=== PATIENT | female | born 1960 | race Two or more races ===

== ENCOUNTER 2023-05-03 08:33 | Day surgery (SDC) | payer OTHER, SELFPAY ==
[2023-05-01 12:45] VITALS: BMI 29.9
--- NOTE | 2023-05-02 10:29 | P.CONAN_ITS ---
Documented by User: Lashaun Hyde NP 05/02/23 10:30 HPI - Anesthesia Eval Consult details Narrative: 63yo F for Colonoscopy PMFSH Active Problems Active Problems: All Active Problems (Updated 05/01/23 @ 12:45 by Marion Clifford, KATY) Osteoporosis (Acute) Uterine fibroid (Acute) Postmenopausal (Acute ~06/09/21) Hyperglycemia (Acute) Normal Pap smear (Acute) Mammogram normal (Acute) Hyperlipemia (Acute) HTN (hypertension) (Acute) Annual physical exam (Acute) Past Medical History Medical History Osteoporosis Postmenopausal (~06/09/21) Hyperglycemia Normal Pap smear Mammogram normal Hyperlipemia HTN (hypertension) Annual physical exam Vitamin D deficiency Uterine fibroid Glaucoma Hypothyroidism Family History Family History Father HTN (hypertension) Stroke Mother HTN (hypertension) Brother No problems noted. Sister No problems noted. Son No problems noted. Sister No problems noted. Daughter No problems noted. 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 Housing: House Patient Tobacco Use Status: Never used Tobacco e-Cigarette/Vaping Use: Never Used Are you DNR?: No Advance Directives: No Advance Directives Information Provided: Yes Nutrition Risks: No Nutritional Risk Current occupational status: employed Cognitive needs: No Hearing needs: No Vision needs: Yes Meds Allergies Allergy/AdvReac Type Severity Reaction Status Date / Time lisinopril AdvReac Intermediate cough Verified 05/03/23 08:55 Home Medications Medication Instructions Recorded Confirmed Last Taken Type brimonidine 0.2 % eye drops 1 drp ophthalmic (eye) TID 06/09/21 05/01/23 Unknown History dorzolamide 22.3 mg-timolol 6.8 1 drp ophthalmic (eye) BID 06/09/21 05/01/23 Unknown History mg/mL eye drops memantine 10 mg tablet 10 mg PO BID 06/09/21 05/01/23 05/03/23 History Exam Height,Weight and Vital Signs: Height 5 ft 4 in Weight 78.925 kg Assessment and Plan Assessment Anesthesia Assessment: Chart Reviewed Documented by User: Mayte Andrade MD 05/03/23 08:58 [facility] Past Medical History Medical History Osteoporosis Postmenopausal (~06/09/21) Hyperglycemia Normal Pap smear Mammogram normal Hyperlipemia HTN (hypertension) Annual physical exam Vitamin D deficiency Uterine fibroid Glaucoma Hypothyroidism Family History Family History Father HTN (hypertension) Stroke Mother HTN (hypertension) Brother No problems noted. Sister No problems noted. Son No problems noted. Sister No problems noted. Daughter No problems noted. 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 Housing: House Patient Tobacco Use Status: Never used Tobacco e-Cigarette/Vaping Use: Never Used Are you DNR?: No Advance Directives: No Advance Directives Information Provided: Yes Nutrition Risks: No Nutritional Risk Current occupational status: employed Cognitive needs: No Hearing needs: No Vision needs: Yes Meds Allergies Allergy/AdvReac Type Severity Reaction Status Date / Time lisinopril AdvReac Intermediate cough Verified 05/03/23 08:55 Home Medications Medication Instructions Recorded Confirmed Last Taken Type brimonidine 0.2 % eye drops 1 drp ophthalmic (eye) TID 06/09/21 05/01/23 Unknown History dorzolamide 22.3 mg-timolol 6.8 1 drp ophthalmic (eye) BID 06/09/21 05/01/23 Unknown History mg/mL eye drops memantine 10 mg tablet 10 mg PO BID 06/09/21 05/01/23 05/03/23 History Exam Airway Mallampati Class: II TM Dist: >3cm Neck ROM: Full Loose/Missing/Broken Teeth: No Heart: RRR Lungs: CTA Assessment and Plan Assessment Anesthesia Assessment: Anesthesia Plan Discussed Final Anesthetic Review History of Problems with Anesthesia: No NPO: Yes ASA Class: II Final Preanesthetic Review: Meds/Allgs Chart Reviewed, Consent Obtained/Reviewed and Anes Risks/Benef Reviewed Patient Risk: Low Procedure Risk: Low Anesthetic Plan Anesthetic Plan: MAC: Disposition: Standard PACU
[2023-05-03 08:41] VITALS: BMI 29.9
[2023-05-03] MEDS: Lactated Ringers 1,000 ML 100 ML IVCONT (08:48)
[2023-05-03 08:53] VITALS: BP 151/101; PULSE 74; RESP 18; TEMP 36.6; O2SAT 97
--- NOTE | 2023-05-03 09:05 | MHC.SHP ---
Pre-Procedural Eval Section A Date of Service: 05/03/23 Section B Chief Complaint: Encounter for screening for malignant neoplasm of Details of Present Illness: see H&P no changes Relevant Social History: None Present Medications: see Short Stay Collaborative assessment Medical History: No relevant PMH History of Previous Operations: No relevant previous surgery Allergies: Allergies Allergy/AdvReac Type Severity Reaction Status Date / Time lisinopril AdvReac Intermediate cough Verified 05/03/23 08:55 Review of Systems Sugical H&P ROS: Negative: Constitution, Cardiovascular, Respiratory, Neurological, Psychiatric, Hem-Onc, Allergic/Immunologic, Gastrointestinal, Genitourinary, Musculoskeletal, Integumentary, Endocrine and Eyes/Ears/Nose/Throat Exam Surgical H&P Exam: Normal: HEENT, Normal: Heart, Normal: Lungs, Normal: Extremities, Normal: Abdomen, Normal: Skin and Normal: Neurological Plan Diagnosis/Plan: Unchanged I have reviewed the history and physical and performed a pertinent physical examination on my patient. No changes have occurred unless specified. Time Spent With Patient Time: Total time managing care of this patient today ____ minutes.
[2023-05-03 09:40] VITALS: BP 113/74; PULSE 72; RESP 14; TEMP 36.1; O2SAT 98
[2023-05-03 09:45] VITALS: BP 106/72; PULSE 69; RESP 16; O2SAT 98
[2023-05-03 09:50] VITALS: BP 114/79; PULSE 75; RESP 16; O2SAT 99
[2023-05-03 09:55] VITALS: BP 114/79; PULSE 70; RESP 16; TEMP 36.4; O2SAT 99
--- NOTE | 2023-05-03 10:07 | OP_ITS ---
DATE OF SERVICE: 05/03/2023 SURGEON: Junior Stephenson MD INDICATIONS: Colon cancer screening. PREOPERATIVE DIAGNOSIS: POSTOPERATIVE DIAGNOSIS: PROCEDURE PERFORMED: Colonoscopy to the cecum. ESTIMATED BLOOD LOSS: COMPLICATIONS: ANESTHESIA: Monitored anesthesia care. ASSISTANTS: SPECIMENS: DESCRIPTION OF PROCEDURE: A history and physical performed. The risks and benefits of the procedure were explained to the patient. Informed consent was obtained. The patient was placed in the left lateral decubitus position. A digital rectal exam was performed and was found to be normal. The Olympus pediatric video colonoscope was introduced into the rectum and advanced to the cecum. The cecum was identified by transillumination, palpation, and identification of ileocecal valve. Examination was performed and the scope was removed. She tolerated the procedure well. She returned to recovery room in stable condition. FINDINGS: The terminal ileum was not examined. The visualized colonic mucosa was normal. The quality of the prep was good. No polyps were identified. Retroflexed examination showed moderate-sized internal hemorrhoids. IMPRESSION: Normal colonoscopy. RECOMMENDATIONS: 1. Follow up as needed. 2. Repeat colonoscopy is recommended in 10 years for average risk individuals. MD LILLY Dawson/VIOLETTAL / [id number]
== END 2023-05-03 10:09 | disposition home or self-care (01) ==
PROVIDERS: PCP Internal Medicine; Visit Provider Internal Medicine Gastroenterology
PROC: 0DJD8ZZ Inspection of Lower Intestinal Tract, Via Natural or Artificial Opening Endoscopic (ICD-10-PCS; CPT 45378; principal; 2023-05-03 09:50)
DX: Z12.11 Encounter for screening for malignant neoplasm of colon (principal); K64.8 Other hemorrhoids; I10 Essential (primary) hypertension; E78.00 Pure hypercholesterolemia, unspecified; E03.9 Hypothyroidism, unspecified; H40.9 Unspecified glaucoma; Z79.899 Other long term (current) drug therapy; Z88.8 Allergy status to other drugs, medicaments and biological substances
CPT/HCPCS: 45378; J2704

== ENCOUNTER 2023-06-21 08:02 | Outpatient (AMB) | payer OTHER, SELFPAY ==
--- NOTE | 2023-06-21 08:09 | MHC.PC.OV ---
Vital Signs 06/21/23 08:10 Height 5 ft 3 in Weight 174 lb BMI 30.8 BP 106/68 Blood Pressure Location Lt brachial Position Sitting Pulse 68 Pulse Source Pulse Oximeter Pulse Oximetry (%) 97 Oxygen Delivery Method Room Air Intake Visit Reasons: PE Intake Note: Pt is here today for a PE. Allergies atorvastatin [From Lipitor] Adverse Reaction (Intermediate, Verified 06/21/23 12:37) Muscle Pain lisinopril Adverse Reaction (Intermediate, Verified 06/21/23 08:13) cough Medication List - Last Reconciled 06/21/23 by Zuleima Rodriguez MD brimonidine 0.2% 1 drp ophthalmic (eye) TID dorzolamide-timolol 22.3-6.8 mg/mL 1 drp ophthalmic (eye) BID levothyroxine 75 mcg PO DAILY memantine 10 mg PO BID metoprolol succinate ER 50 mg PO DAILY rosuvastatin (Crestor) 10 mg PO DAILY Tobacco use date assessed: 06/21/23 Dental Screening Dental Screen Date: 06/21/23 Did you have a dental visit in the last 12 months?: Yes Did you have a dental problem in the last 6 months where you did not have access to dental care?: No Was dental information given to patient?: Patient has dentist HPI PE HPI Details Patient presents for physical [facility] Medical History Osteoporosis Postmenopausal (~06/09/21) Hyperglycemia Normal Pap smear Mammogram normal Hyperlipemia HTN (hypertension) Annual physical exam Vitamin D deficiency Uterine fibroid Glaucoma Hypothyroidism Surgical History H/O prior ablation treatment Family History Father HTN (hypertension) Stroke Mother HTN (hypertension) Brother No problems noted. Sister No problems noted. Son No problems noted. Sister No problems noted. Daughter No problems noted. 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 1. Little interest or pleasure in doing things: not at all 2. Feeling down, depressed, or hopeless: not at all 3. Trouble falling or staying asleep, or sleeping too much: not at all 4. Feeling tired or having little energy: not at all 5. Poor appetite or overeating: not at all 6. Feeling bad about yourself - or that you are a failure or have let yourself or your family down: not at all 7. Trouble concentrating on things, such as reading the newspaper or watching television: not at all 8. Moving or speaking so slowly that other people could have noticed. Or the opposite - being so fidgety or restless that you have been moving around a lot more than usual: not at all 9. Thoughts that you would be better off or of hurting yourself in some way: not at all Total score: 0 Depression Screening Interpretation: Negative Depression Screening Done: Yes 27624 - PHQ-9 Billing: Yes Source: Developed by Drs. Elton Flores, Natacha Godoy, Uday Pena and colleagues, with an educational jeremy from [employer]. Thrive Questionnaire Date Thrive assessed: 06/21/23 I am a: Patient What is your living situation today?: I have a steady place to live Within the past 12 months, did the food you bought not last and you didn't have the money to get more?: Never true Within the past 12 months, did you worry whether your food would run out before you got money to buy more?: Never true Do you have trouble paying for medicines?: No Do you have trouble getting transportation to medical appointments?: No Do you have trouble paying your heating and electricity bill?: No Do you have trouble taking care of your child, family member or friend?: No Do you have trouble with day-to-day activities such as bathing, preparing meals, shopping, managing finances, etc.?: No Are you currently unemployed and looking for a job?: No Are you interested in more education?: No Please select the resources that you would like help with: None Currently or been in a relationship where the following occur: no concerns reported THRIVE Score: 0 AUDIT C Alcohol Use Questionnaire (AUDIT-C) 1. How often do you have a drink containing alcohol?: Never 3. How often do you have six or more drinks on one occasion?: Never Total Score: 0 LAURITA-7 AMB Questionnaire LAURITA-7 Date LAURITA - 7 assessed: 06/21/23 Feeling nervous, anxious, or on edge: 0 = Not at all Not being able to stop or control worryin = Not at all Worrying too much about different things: 0 = Not at all Trouble relaxin = Not at all Being so restless that it is hard to sit still: 0 = Not at all Becoming easily annoyed or irritable: 0 = Not at all Feeling afraid as if something awful might happen: 0 = Not at all Total LAURITA-7 score (0-4 normal; 5-9 mild; 10-14 moderate; 15-21 severe): 0 Source: Developed by Drs. Elton Flores, Natacha Godoy, Uday Pena and colleagues, with an educational jeremy from [employer]. Review of Systems Const All systems reviewed & are unremarkable except as noted in HPI and below Reports no additional complaints Eyes Reports no additional complaints ENT Reports no additional complaints Card Reports no additional complaints Resp Reports no additional complaints GI Reports no additional complaints Reports no additional complaints Physical exam (Primary Care) Vital Signs: Last Vital Signs Pulse 68 06/21/23 08:10 BP 106/68 06/21/23 08:10 Pulse Ox 97 06/21/23 08:10 Oxygen Delivery Method Room Air 06/21/23 08:10 BMI result Body Mass Index 30.8 Tobacco/Smoking Status: Tobacco use Status Tobacco use date assessed 06/21/23 06/21/23 08:15 Patient Tobacco Use Status Never used Tobacco 06/21/23 08:15 e-Cigarette/Vaping Use Never Used 06/21/23 08:09 PHQ-9: PHQ-9 Score PHQ-9: Total score 0 06/21/23 08:49 Depression Screening Interpretation: Negative Thrive Assessment: Date of Thrive Assessment Date Thrive assessed 06/21/23 06/21/23 08:20 Currently or been in a relationship where the following occur: no concerns reported Const General: no acute distress HENMT Head: Yes normal to inspection Ears: hearing grossly normal bilaterally Mouth: Normal oral and palatal mucosa present Eyes General: appearance normal, both eyes and all related structures Neck Neck: Yes no lymphadenopathy and Yes supple Resp Effort & Inspection: normal respiratory effort Auscultation: clear to auscultation bilaterally Cardio Rhythm: regular rhythm Heart sounds: S1 normal heart sound present and S2 normal heart sound present GI Inspection: Yes normal to inspection Palpation (GI): Soft to palpation Percussion: Yes normal to percussion Auscultation: normal bowel sounds Assessment and Plan Assessment & Plan (1) Osteoporosis: Comment: T-score -2.7. DEXA 06/27. Patient up for lifestyle changes and vitamin-D 3 supplement. She declined tx, DEXA will be recheck in 11/2023 Code(s): M81.0 - Age-related osteoporosis without current pathological fracture Plan: Patient will schedule DEXA in November at [facility] and will follow-up to discuss the results. Weight-bearing exercises at least 3 times a week and taking vitamin-D supplement 5000 units every other day discussed with the patient (2) Postmenopausal: Onset Date: ~06/09/21 Code(s): Z78.0 - Asymptomatic menopausal state (3) Hyperlipemia: Comment: Intolerant to Lipitor, muscle pain Code(s): E78.5 - Hyperlipidemia, unspecified Plan: Crestor 10 mg will be tried patient will have lipid profile checked in 2 months (4) HTN (hypertension): Comment: Lisinopril changed to metoprolol by Ophthalmology because of beneficial effect of metoprolol on glaucoma Code(s): I10 - Essential (primary) hypertension Plan: Continue metoprolol (5) Annual physical exam: Code(s): Z00.00 - Encounter for general adult medical examination without abnormal findings Plan: Well-balanced diet regular physical activity discussed with the patient she is up-to-date with mammogram and colonoscopy Orders: Orders Lipid Panel 3 Months E78.5 - Hyperlipidemia, unspecified, I10 - Essential (primary) hypertension, Z78.0 - Asymptomatic menopausal state Hemoglobin A1c 3 Months E78.5 - Hyperlipidemia, unspecified, I10 - Essential (primary) hypertension, Z78.0 - Asymptomatic menopausal state Comprehensive [place]. Panel Fast Today E78.5 - Hyperlipidemia, unspecified, I10 - Essential (primary) hypertension, Z78.0 - Asymptomatic menopausal state Hemoglobin A1c 365 Days E78.5 - Hyperlipidemia, unspecified, I10 - Essential (primary) hypertension, M81.0 - Age-related osteoporosis without current pathological fracture, R73.9 - Hyperglycemia, unspecified, Z00.00 - Encounter for general adult medical examination without abnormal findings UA w Microscopic 365 Days E78.5 - Hyperlipidemia, unspecified, I10 - Essential (primary) hypertension, M81.0 - Age-related osteoporosis without current pathological fracture, R73.9 - Hyperglycemia, unspecified, Z00.00 - Encounter for general adult medical examination without abnormal findings Vitamin D 25-OH Total 365 Days E78.5 - Hyperlipidemia, unspecified, I10 - Essential (primary) hypertension, M81.0 - Age-related osteoporosis without current pathological fracture, R73.9 - Hyperglycemia, unspecified, Z00.00 - Encounter for general adult medical examination without abnormal findings XR DEXA axial skeleton 5 Months M81.0 - Age-related osteoporosis without current pathological fracture Vitamin D 25-OH Total 3 Months E78.5 - Hyperlipidemia, unspecified, I10 - Essential (primary) hypertension, Z78.0 - Asymptomatic menopausal state Comprehensive [place]. Panel Fast 365 Days E78.5 - Hyperlipidemia, unspecified, I10 - Essential (primary) hypertension, M81.0 - Age-related osteoporosis without current pathological fracture, R73.9 - Hyperglycemia, unspecified, Z00.00 - Encounter for general adult medical examination without abnormal findings Lipid Panel 365 Days E78.5 - Hyperlipidemia, unspecified, I10 - Essential (primary) hypertension, M81.0 - Age-related osteoporosis without current pathological fracture, R73.9 - Hyperglycemia, unspecified, Z00.00 - Encounter for general adult medical examination without abnormal findings Complete Blood Count Auto Diff 365 Days E78.5 - Hyperlipidemia, unspecified, I10 - Essential (primary) hypertension, M81.0 - Age-related osteoporosis without current pathological fracture, R73.9 - Hyperglycemia, unspecified, Z00.00 - Encounter for general adult medical examination without abnormal findings TSH reflex Free T4 365 Days E78.5 - Hyperlipidemia, unspecified, I10 - Essential (primary) hypertension, M81.0 - Age-related osteoporosis without current pathological fracture, R73.9 - Hyperglycemia, unspecified, Z00.00 - Encounter for general adult medical examination without abnormal findings Medications: New rosuvastatin (Crestor) 10 mg PO DAILY 90 tabs 1RF Discontinued atorvastatin Discontinued Reason: Doctor's Order 20 mg PO DAILY 90 tabs 3RF Coding Level of Care Code Est Pt Prev Care 40-64y(73258) Diagnoses Osteoporosis M81.0 Postmenopausal Z78.0 Hyperlipemia E78.5 HTN (hypertension) I10 Annual physical exam Z00.00
[2023-06-21 08:10] VITALS: BP 106/68; PULSE 68; O2SAT 97; BMI 30.8
== END 2023-06-21 09:14 | disposition home or self-care (01) ==
PROVIDERS: PCP Internal Medicine; Visit Provider Internal Medicine
DX: M81.0 Age-related osteoporosis without current pathological fracture (principal); Z78.0 Asymptomatic menopausal state; E78.5 Hyperlipidemia, unspecified; I10 Essential (primary) hypertension; Z00.00 Encounter for general adult medical examination without abnormal findings
CPT/HCPCS: 99396

== ENCOUNTER 2024-09-18 10:16 | Outpatient (REF) | payer OTHER, SELFPAY ==
[2024-09-18 12:57] LABS: MANUAL DIFF FLAG NO
[2024-09-18 13:20] LABS: Basophils Percent Auto 0.6 % (0-2); Eosinophils Absolute Auto 0.2 X10*3/uL (0.0-0.4); Eosinophils Percent Auto 3.4 % (0-4); Hematocrit 41.4 % (37.0-47.0); Hemoglobin 13.1 g/dl (12.0-16.0); Imm Gran Abs Auto 0.02 X10*3/uL (0.00-0.03); Imm Gran Pct Auto 0.3 % (0.0-0.4); Lymphocytes Absolute Auto 2.6 X10*3/uL (1.2-4.9); Lymphocytes Percent Auto 40.9 % (20-40); Mean Corpuscular HGB Conc 31.6 g/dl (31.0-35.0); Mean Corpuscular Volume 91.8 fL (80.0-98.0); Mean Platelet Volume 10.6 fL (9.4-12.3); Monocytes Absolute Auto 0.4 X10*3/uL (0.1-1.2); Monocytes Percent Auto 6.4 % (2-11); Neutrophils Percent Auto 48.4 % (45-73); Platelet Count 262 X10*3/uL (160-400); Red Blood Count 4.51 X10*6/uL (4.20-5.50); White Blood Count 6.2 X10*3/uL (4.8-10.8)
[2024-09-18 13:26] LABS: Estimated Average Glucose 105 mg/dL; Hemoglobin A1c % 5.3 % (<6.0)
[2024-09-18 13:50] LABS: Alanine Aminotransferase 20 U/L (0-31); Albumin Level 4.8 g/dL (3.5-5.0); Alkaline Phosphatase 61 U/L (39-117); Anion Gap 11 (12-20); Aspartate Amino Transferase 25 U/L (5-31); Bilirubin Total 0.4 mg/dL (0.0-1.0); Blood Urea Nitrogen 21 mg/dL (9-16); Calcium 9.5 mg/dL (8.4-10.2); Carbon Dioxide 26 mmol/L (22-29); Chloride 106 mmol/L (96-108); Cholesterol 193 mg/dL (<200); Estimated Glomerular Filt Rate > 60; Glucose Fasting 88 mg/dL (60-99); HDL Cholesterol 56 mg/dL (>40); LDL Cholesterol Calculated 110 mg/dL (<100); Potassium 4.1 mmol/L (3.3-5.1); Sodium 139 mmol/L (135-145); TSH reflex Free T4 0.76 uIU/mL (0.32-4.0); Total Protein 7.3 g/dL (6.5-8.0); Triglycerides 135 mg/dL (<150); Vitamin D 25-OH Total 121.9 ng/mL (>30)
== END 2024-09-18 10:17 | disposition home or self-care (01) ==
LOC: HO.HMGCLDS 10:16
PROVIDERS: PCP Internal Medicine; Visit Provider Internal Medicine
DX: Z00.00 Encounter for general adult medical examination without abnormal findings (principal); E78.5 Hyperlipidemia, unspecified; M81.0 Age-related osteoporosis without current pathological fracture; E04.1 Nontoxic single thyroid nodule; E55.9 Vitamin D deficiency, unspecified; R73.9 Hyperglycemia, unspecified; I10 Essential (primary) hypertension; Z13.31 Encounter for screening for depression
CPT/HCPCS: 36415; 80053; 80061; 82306; 83036; 84443; 85025; 96127

== ENCOUNTER 2024-09-18 10:16 | Outpatient (AMB) | payer OTHER, SELFPAY ==
--- NOTE | 2024-09-18 10:18 | A.OFFPC_ITS ---
Vital Signs 09/18/24 10:21 Height 5 ft 4 in Weight 171 lb 4 oz BMI 29.4 BP 126/76 Blood Pressure Location Rt brachial Position Sitting Respiration 16 Pulse 59 Pulse Source Pulse Oximeter Temp 97.7 F Temp Source Oral Pulse Oximetry (%) 96 Oxygen Delivery Method Room Air Intake Visit Reasons: Annual PE/ins inactive Intake Note: Pt is here for annual PE. Allergies atorvastatin [From Lipitor] Adverse Reaction (Intermediate, Verified 09/18/24 10:21) Muscle Pain lisinopril Adverse Reaction (Intermediate, Verified 09/18/24 10:21) cough Medication List - Last Reconciled 09/18/24 by Zuleima Rodriguez MD brimonidine 0.2% 1 drp ophthalmic (eye) TID dorzolamide-timolol 22.3-6.8 mg/mL 1 drp ophthalmic (eye) BID levothyroxine 75 mcg PO DAILY memantine 10 mg PO BID metoprolol succinate ER 50 mg PO DAILY rosuvastatin 10 mg PO DAILY Tobacco use date assessed: 09/18/24 Dental Screening Dental Screen Date: 09/18/24 Did you have a dental visit in the last 12 months?: Yes Did you have a dental problem in the last 6 months where you did not have access to dental care?: No Was dental information given to patient?: Patient has dentist HPI Annual PE/ins inactive HPI Details Patient presents for physical, she is going on the [employer] cruise in December [facility] Medical History (Updated 09/18/24 @ 11:33 by Zuleima Rodriguez MD) Vitamin D deficiency Osteoporosis Postmenopausal (~06/09/21) Hyperglycemia Normal Pap smear Mammogram normal Hyperlipemia HTN (hypertension) Annual physical exam Uterine fibroid Glaucoma Hypothyroidism Surgical History (Updated 09/18/24 @ 10:50 by Zuleima Rodriguez MD) H/O prior ablation treatment Family History Father HTN (hypertension) Stroke Mother HTN (hypertension) Brother No problems noted. Sister No problems noted. Son No problems noted. Sister No problems noted. Daughter No problems noted. 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 1. Little interest or pleasure in doing things: not at all 2. Feeling down, depressed, or hopeless: not at all 3. Trouble falling or staying asleep, or sleeping too much: not at all 4. Feeling tired or having little energy: not at all 5. Poor appetite or overeating: not at all 6. Feeling bad about yourself - or that you are a failure or have let yourself or your family down: not at all 7. Trouble concentrating on things, such as reading the newspaper or watching television: not at all 8. Moving or speaking so slowly that other people could have noticed. Or the opposite - being so fidgety or restless that you have been moving around a lot more than usual: not at all 9. Thoughts that you would be better off or of hurting yourself in some way: not at all Total score: 0 Depression Screening Interpretation: Negative Depression Screening Done: Yes 67253 - PHQ-9 Billing: Yes Source: Developed by Drs. Elton Flores, Natacha Godoy, Uday Pena and colleagues, with an educational jeremy from [employer]. Thrive Questionnaire Date Thrive assessed: 09/18/24 I am a: Patient What is your living situation today?: I have a steady place to live Within the past 12 months, did the food you bought not last and you didn't have the money to get more?: Never true Within the past 12 months, did you worry whether your food would run out before you got money to buy more?: Never true Do you have trouble paying for medicines?: No Do you have trouble getting transportation to medical appointments?: No Do you have trouble paying your heating and electricity bill?: No Do you have trouble taking care of your child, family member or friend?: No Do you have trouble with day-to-day activities such as bathing, preparing meals, shopping, managing finances, etc.?: No Are you currently unemployed and looking for a job?: No Are you interested in more education?: No Please select the resources that you would like help with: None Currently or been in a relationship where the following occur: No concerns reported THRIVE Score: 0 AUDIT C Alcohol Use Questionnaire (AUDIT-C) 1. How often do you have a drink containing alcohol?: Never 3. How often do you have six or more drinks on one occasion?: Never Total Score: 0 LAURITA-7 AMB Questionnaire LAURITA-7 Date LAURITA - 7 assessed: 09/18/24 Feeling nervous, anxious, or on edge: 0 = Not at all Not being able to stop or control worryin = Not at all Worrying too much about different things: 0 = Not at all Trouble relaxin = Not at all Being so restless that it is hard to sit still: 0 = Not at all Becoming easily annoyed or irritable: 0 = Not at all Feeling afraid as if something awful might happen: 0 = Not at all Total LAURITA-7 score (0-4 normal; 5-9 mild; 10-14 moderate; 15-21 severe): 0 Source: Developed by Drs. Elton Flores, Natacha Godoy, Uday Pena and colleagues, with an educational jeremy from [employer]. LAURITA-7 Assessment Billing LAURITA-7 Assessment Tool: LAURITA-7 Assessment 81704 Review of Systems Const All systems reviewed & are unremarkable except as noted in HPI and below Eyes Reports no additional complaints ENT Reports no additional complaints Card Reports no additional complaints Resp Reports no additional complaints GI Reports no additional complaints Reports no additional complaints Physical exam (Primary Care) Vital Signs: Last Vital Signs Temp 97.7 F 09/18/24 10:21 Pulse 59 09/18/24 10:21 Resp 16 09/18/24 10:21 BP 126/76 09/18/24 10:21 Pulse Ox 96 09/18/24 10:21 Oxygen Delivery Method Room Air 09/18/24 10:21 BMI result Body Mass Index 29.4 Tobacco/Smoking Status: Tobacco use Status Tobacco use date assessed 09/18/24 09/18/24 10:26 Patient Tobacco Use Status Never used Tobacco 09/18/24 10:20 e-Cigarette/Vaping Use Never Used 09/18/24 10:20 PHQ-9: PHQ-9 Score PHQ-9: Total score 0 09/18/24 10:28 Depression Screening Interpretation: Negative Thrive Assessment: Date of Thrive Assessment Date Thrive assessed 09/18/24 09/18/24 10:26 Currently or been in a relationship where the following occur: No concerns reported Const General: no acute distress HENMT Head: Yes normal to inspection Ears: hearing grossly normal bilaterally Face and sinus: Yes normal facial exam Mouth: Normal oral and palatal mucosa present Throat: Yes posterior oropharynx normal Eyes General: appearance normal, both eyes and all related structures Neck Neck: Yes no lymphadenopathy and Yes supple Resp Effort & Inspection: normal respiratory effort Auscultation: clear to auscultation bilaterally Cardio Rhythm: regular rhythm Heart sounds: S1 normal heart sound present and S2 normal heart sound present GI Inspection: Yes normal to inspection Palpation (GI): Soft to palpation Percussion: Yes normal to percussion Auscultation: normal bowel sounds Coding Level of Care Code Est Pt Prev Care 40-64y(98996) Diagnoses Osteoporosis M81.0 Hyperlipemia E78.5 Thyroid nodule E04.1 Annual physical exam Z00.00 Additional Codes LAURITA-7 Assessment Billing - LAURITA-7 Assessment Tool: LAURITA-7 Assessment 44664 ([id number]) PHQ-9 - 41830 - PHQ-9 Billing: Yes ([id number]) Assessment & Plan Assessment & Plan (1) Osteoporosis: Comment: T-score -2.7. DEXA 06/27, She declined tx, DEXA 08/2024 T sore -2.6 femoral neck Code(s): M81.0 - Age-related osteoporosis without current pathological fracture Category: Medical Plan: Continue vitamin-D supplement weightbearing exercise discussed with the patient. She declined to treatment (2) Hyperlipemia: Comment: Intolerant to Lipitor, muscle pain Code(s): E78.5 - Hyperlipidemia, unspecified Category: Medical Plan: Continue crestor, check lipid profile today (3) Thyroid nodule: Comment: History of thyroid nodule biopsy at [facility] 2014 Code(s): E04.1 - Nontoxic single thyroid nodule Category: Medical Plan: Repeat thyroid ultrasound (4) Annual physical exam: Code(s): Z00.00 - Encounter for general adult medical examination without abnormal findings Category: Medical Plan: Well-balanced diet regular physical activity discussed with the patient. She is up-to-date with the mammogram at [facility] and had negative colonoscopy in 2023 Orders: Orders Lipid Panel Today E55.9 - Vitamin D deficiency, unspecified, E78.5 - Hyperlipidemia, unspecified, M81.0 - Age-related osteoporosis without current pathological fracture Vitamin D 25-OH Total Today E55.9 - Vitamin D deficiency, unspecified, E78.5 - Hyperlipidemia, unspecified, M81.0 - Age-related osteoporosis without current pathological fracture Hemoglobin A1c 1 Year E55.9 - Vitamin D deficiency, unspecified, E78.5 - Hyperlipidemia, unspecified, I10 - Essential (primary) hypertension, R73.9 - Hyperglycemia, unspecified Comprehensive Reliance. Panel Fast 1 Year E55.9 - Vitamin D deficiency, unspecified, E78.5 - Hyperlipidemia, unspecified, I10 - Essential (primary) hypertension, R73.9 - Hyperglycemia, unspecified Complete Blood Count Auto Diff 1 Year E55.9 - Vitamin D deficiency, unspeci fied, E78.5 - Hyperlipidemia, unspecified, I10 - Essential (primary) hypertension, R73.9 - Hyperglycemia, unspecified Vitamin D 25-OH Total 1 Year E55.9 - Vitamin D deficiency, unspecified, E78.5 - Hyperlipidemia, unspecified, I10 - Essential (primary) hypertension, R73.9 - Hyperglycemia, unspecified TSH reflex Free T4 1 Year E55.9 - Vitamin D deficiency, unspecified, E78.5 - Hyperlipidemia, unspecified, I10 - Essential (primary) hypertension, R73.9 - Hyperglycemia, unspecified US thyroid Today E04.1 - Nontoxic single thyroid nodule Hemoglobin A1c Today E55.9 - Vitamin D deficiency, unspecified, E78.5 - Hyperlipidemia, unspecified, M81.0 - Age-related osteoporosis without current pathological fracture Lipid Panel 1 Year E55.9 - Vitamin D deficiency, unspecified, E78.5 - Hyperlipidemia, unspecified, I10 - Essential (primary) hypertension, R73.9 - Hyperglycemia, unspecified
[2024-09-18 10:21] VITALS: BP 126/76; PULSE 59; RESP 16; TEMP 36.5; O2SAT 96; BMI 29.4
--- OUTSIDE RECORDS SUMMARY | 2024-09-18 11:13 | XMS_ITS | Patient Health Record ---
Author Organization [facility] Address [address] [place] [id number] Care Team Providers Care Grape Picker Name Role Phone Zuleima Rodriguez MD Primary Care Provider Junior Goodman Jr Unavailable Allergies No Known Allergies Reason For Referral No Information Medications Medication SIG (Take, Route, Frequency, Duration) Notes Start Date End Date Status Atorvastatin Calcium 10 MG 1 tablet Oral ly Once a day for 30 day(s) Active Aspirin 81 81 MG 1 tablet Orally Once a day for 30 day(s) Active Brimonidine Tartrate 0.1 % 1 drop into a ffected eye Ophthalmic every 8 hrs Active Dorzolamide HCl-Timolol Mal 22.3-6.8 MG/ML 1 drop into affected eye Ophthalmic Twice a day Active Metoprolol Succinate ER 50 MG 1 tablet Orally Once a day for 30 day(s) Active Levothyroxine Sodium 75 MCG 1 tablet in the morning on an empty stomach Orally Once a day for 30 day(s) Active Immunizations Vaccine Route Administration Date Status Comme nts Influenza Unknown 01/26/2022 Refused Social History Tobacco Use: Social History Observation Description Date Details (start date - stop date) Never Smoker NA - NA Tobacco Use/Smoking Question Answer Notes Patient is a nonsmoker Alcohol Screen Question Answer Notes Did you have a drink containing alcohol in the p ast year? No Points 0 Interpretation Negative Problems Problem Type SNOMED Code ICD Code Onset Dates Problem Status W/U Status Risk Notes Problem 121201590 Colon cancer screening (Z12.11) Active confirmed Problem [id number] Encounter for other preprocedural examination (Z01.818) Active confirmed Problem [id number] Long-term use of aspirin therapy (Z79.82) Active confirmed Plan Of Treatment No Information Insurance Providers Payer Name Payer Address Payer Phone Subscriber Number Group Number Insured Name Patient Relationship to Insured Coverage Start Date Coverage End Date [facility] [address] [facility] [place], [place] [phone] [id number] [id number] [id number] Self - patient is the insured Medical (General) History Medical History History ICD Code Hypertension Elevated cholesterol Hypothyroidism Glaucoma Surgical History Surgery Date(Month/Year) hysterectomy for fibroids
== END 2024-09-18 11:09 | disposition home or self-care (01) ==
PROVIDERS: PCP Internal Medicine; Visit Provider Internal Medicine
DX: M81.0 Age-related osteoporosis without current pathological fracture (principal); E78.5 Hyperlipidemia, unspecified; E04.1 Nontoxic single thyroid nodule; Z00.00 Encounter for general adult medical examination without abnormal findings